=== PATIENT | female | born 1945 | race Caucasian/White ===

== ENCOUNTER → 2023-03-23 07:15 | Outpatient (REF) | payer MEDICARE, OTHER, SELFPAY | LOC: HWRAD 07:15 | PROVIDERS: ATTENDING PHYSICIAN Internal Medicine Critical Care Medicine; FAMILY PHYSICIAN Family Medicine | DX: R91.8 Other nonspecific abnormal finding of lung field (principal) | CPT/HCPCS: 71250 ==

== ENCOUNTER → 2023-03-24 09:48 | Outpatient (REF) | payer MEDICARE, OTHER, SELFPAY ==
[2023-03-24 16:20] LABS: INR 2.07; PT 23.5 Sec (11.4-14.6)
== END ==
LOC: REG 09:48
PROVIDERS: ATTENDING PHYSICIAN Internal Medicine Cardiovascular Disease
DX: I48.91 Unspecified atrial fibrillation (principal)
CPT/HCPCS: 36415; 85610

== ENCOUNTER → 2023-03-30 08:41 | Outpatient (REF) | payer MEDICARE, OTHER, SELFPAY ==
[2023-03-30 11:07] LABS: PT 30.7 Sec (11.4-14.6)
== END ==
LOC: REG 08:41
PROVIDERS: ATTENDING PHYSICIAN Internal Medicine Cardiovascular Disease
DX: I48.91 Unspecified atrial fibrillation (principal)
CPT/HCPCS: 36415; 85610

== ENCOUNTER → 2023-04-07 11:23 | Outpatient (REF) | payer MEDICARE, OTHER, SELFPAY ==
[2023-04-07 17:36] LABS: INR 3.47; PT 35.4 Sec (11.4-14.6)
== END ==
LOC: REG 11:23
PROVIDERS: ATTENDING PHYSICIAN Internal Medicine Cardiovascular Disease
DX: I48.0 Paroxysmal atrial fibrillation (principal)
CPT/HCPCS: 36415; 85610

== ENCOUNTER → 2023-04-13 09:23 | Outpatient (REF) | payer MEDICARE, OTHER, SELFPAY ==
[2023-04-13 11:55] LABS: INR 3.14; PT 32.7 Sec (11.4-14.6)
== END ==
LOC: REG 09:23
PROVIDERS: ATTENDING PHYSICIAN Internal Medicine Cardiovascular Disease
DX: I48.91 Unspecified atrial fibrillation (principal); I48.0 Paroxysmal atrial fibrillation
CPT/HCPCS: 36415; 85610

== ENCOUNTER → 2023-04-20 10:06 | Outpatient (REF) | payer MEDICARE, OTHER, SELFPAY ==
[2023-04-20 11:44] LABS: INR 3.41; PT 34.9 Sec (11.4-14.6)
== END ==
LOC: REG 10:06
PROVIDERS: ATTENDING PHYSICIAN Internal Medicine Cardiovascular Disease
DX: I48.91 Unspecified atrial fibrillation (principal)
CPT/HCPCS: 36415; 85610

== ENCOUNTER → 2023-04-27 09:24 | Outpatient (REF) | payer MEDICARE, OTHER, SELFPAY ==
[2023-04-27 11:56] LABS: INR 3.79
== END ==
LOC: REG 09:24
PROVIDERS: ATTENDING PHYSICIAN Internal Medicine Cardiovascular Disease
DX: I48.0 Paroxysmal atrial fibrillation (principal)
CPT/HCPCS: 36415; 85610

== ENCOUNTER → 2023-04-28 15:17 | Outpatient (REF) | payer MEDICARE, OTHER, SELFPAY | LOC: HWRAD 15:17 | PROVIDERS: ATTENDING PHYSICIAN Family Medicine | DX: Z12.31 Encounter for screening mammogram for malignant neoplasm of breast (principal); Z78.0 Asymptomatic menopausal state | CPT/HCPCS: 77063; 77067; 77080 ==

== ENCOUNTER → 2023-05-04 09:53 | Outpatient (REF) | payer MEDICARE, OTHER, SELFPAY ==
[2023-05-04 11:05] LABS: INR 2.02
== END ==
LOC: REG 09:53
PROVIDERS: ATTENDING PHYSICIAN Internal Medicine Cardiovascular Disease
DX: I48.0 Paroxysmal atrial fibrillation (principal)
CPT/HCPCS: 36415; 85610

== ENCOUNTER → 2023-05-13 08:22 | Outpatient (REF) | payer MEDICARE, OTHER, SELFPAY ==
[2023-05-13 15:00] LABS: INR 1.83
== END ==
LOC: REG 08:22
PROVIDERS: ATTENDING PHYSICIAN Internal Medicine Cardiovascular Disease
DX: I10 Essential (primary) hypertension (principal); I48.0 Paroxysmal atrial fibrillation
CPT/HCPCS: 36415; 85610

== ENCOUNTER → 2023-05-19 08:06 | Outpatient (REF) | payer MEDICARE, OTHER, SELFPAY ==
[2023-05-19 18:03] LABS: INR 1.88; PT 21.8 Sec (11.4-14.6)
== END ==
LOC: REG 08:06
PROVIDERS: ATTENDING PHYSICIAN Internal Medicine Cardiovascular Disease
DX: Z79.01 Long term (current) use of anticoagulants (principal)
CPT/HCPCS: 36415; 85610

== ENCOUNTER → 2023-05-26 10:03 | Outpatient (REF) | payer MEDICARE, OTHER, SELFPAY ==
[2023-05-26 16:25] LABS: % Basophils 0.7 % (0-2); % Eosinophils 0.4 % (0-6); % Immature Granulocytes 0.2 % (0-0.5); % Lymphocytes 25.9 % (20.5-51.1); % Monocytes 11.2 % (1.7-9.3); % Neutrophils 61.6 % (42.2-75.2); Absolute Lymphocytes 1.2 10^3/uL (1.2-3.4); Absolute Monocytes 0.5 10^3/uL (0.1-0.6); Absolute Neutrophils 2.8 10^3/uL (1.4-6.5); Hematocrit 38.3 % (37.0-47.0); Hemoglobin 12.4 g/dL (12.0-16.0); Mean Corp Hgb Conc. 32.4 g/dL (33.0-37.0); Mean Corpuscular Hgb 30.1 pg (27.0-31.0); Mean Platelet Volume 8.9 fL (7.4-10.4); Nucleated Red Blood Cells % 0 %; Platelet Count 184 10^3/uL (130-400); Red Blood Cell Count 4.12 10^6/uL (4.20-5.40); Red Cell Dist. Width 13.5 % (11.5-14.5); White Blood Cell Count 4.5 10^3/uL (4.8-10.8)
[2023-05-26 16:38] LABS: INR 2.13
[2023-05-26 17:14] LABS: ALT (SGPT) 16 U/L (0-35); AST (SGOT) 25 U/L (14-36); Albumin 4.4 g/dl (3.5-5.0); Alkaline Phosphatase 72 U/L (38-126); Blood Urea Nitrogen 19 mg/dl (7-17); Calcium 9.5 mg/dl (8.4-10.2); Carbon Dioxide 26 mmol/L (22-30); Chloride 104 mmol/L (98-107); Glucose 95 mg/dl (70-99); Potassium 4.2 mmol/L (3.5-5.1); Sodium 136 mmol/L (135-145); Total Bilirubin 0.4 mg/dl (0.2-1.3); Total Protein 6.8 g/dl (6.3-8.2); eGFR > 60.00
== END ==
LOC: REG 10:03
PROVIDERS: ATTENDING PHYSICIAN Internal Medicine Cardiovascular Disease; FAMILY PHYSICIAN Family Medicine
DX: I34.0 Nonrheumatic mitral (valve) insufficiency (principal); I10 Essential (primary) hypertension; R79.9 Abnormal finding of blood chemistry, unspecified
CPT/HCPCS: 36415; 80053; 85025; 85610

== ENCOUNTER → 2023-06-02 08:21 | Outpatient (REF) | payer MEDICARE, OTHER, SELFPAY ==
[2023-06-02 12:13] LABS: INR 3.03; PT 31.8 Sec (11.4-14.6)
== END ==
LOC: REG 08:21
PROVIDERS: ATTENDING PHYSICIAN Internal Medicine Cardiovascular Disease
DX: I34.0 Nonrheumatic mitral (valve) insufficiency (principal); I48.0 Paroxysmal atrial fibrillation
CPT/HCPCS: 36415; 85610

== ENCOUNTER 2023-06-06 09:45 | Day surgery (SDC) | payer MEDICARE, OTHER, SELFPAY ==
[2023-06-06] VITALS (10 sets, daily range): BP systolic 114–149; BP diastolic 52–82; BMI 26.5
[2023-06-06 11:07] LABS: INR 2.67; PT 28.4 Sec (11.4-14.6)
[2023-06-06] MEDS: VANCOCIN 200 IV (11:18)
--- NOTE | 2023-06-06 13:58 | PTCARENOTE ---
Pt transported via bed on monitor with 100% NRB mask and 2 RNs to radiology department for CXR.
--- NOTE | 2023-06-06 14:06 | ITS.CL.PACE ---
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
Pacemaker Implant
Procedure Report:
Dual Chamber Pacemaker Placement:
Ms. Khanna is a very pleasant 78 yrs old woman with severe symptomatic bradycardia and difficult to control atrial fibrillation with post conversion pauses and syncpe. She is recommended for PPM placement.�
Indications: Tachy Cirilo syndrome
Date of the Procedure: 06/06/2023
Pre-Operative Diagnosis: Tachy Cirilo syndrome
Post-Operative Diagnosis: Tachy Cirilo syndrome
Procedure Performed: DUAL CHAMBER PACEMAKER IMPLANTATION
Performing Physician:
Janice Baxter MD
Anesthesia:
See anesthesia records
Pre-operative antibiotics:
Aztreonam and Vancomycin
Detailed Description of the Procedure:
The patient was identified using hospital identification and informed consent obtained for the procedure. The risks were explained including, but not limited to: Bleeding, infection, arrhythmia, stroke, vascular/cardiac/lung puncture, surgery,
pacemaker dependency/device malfunction. All questions were answered.
The patient was brought to the electrophysiology laboratory in stable condition in fasting state. Continuous electrocardiographic and hemodynamic monitoring was initiated. The initial rhythm was sinus rhythm.
A surgical pause and time out was performed immediately prior to the procedure with review of her medical history, recent labs, allergies and medications with site of procedure identified and consent noted in the chart. Antibiotics pre operatively
given. All team members concurred.
The procedure site was meticulously prepared with surgical scrub and allowed to dry with no pooling. Sterile draping was applied to cover the procedure site. The image intensifier was draped with sterile bag and positioned over the patient.
A venogram was done that showed occluded venous system with significant collaterals. There was a trickle of flow from the axillary vein to subclavian veins. Decision was made to proceed with axillary stick and try to cannulate the subclavian vein. �
The left infraclavicular region was prepped and draped in the usual sterile fashion. Local anesthesia was administered subcutaneously using 1% lidocaine / Bupivacaine. Following infiltration with local anesthetic, the axillary vein was accessed
using the fluoroscopic guidance using the micro-puncture apparatus. The axillary vein was accessed but the wire would not be advanced. Multiple attempts were done and decision was made to proceed with subclavian vein access beyond the occlusion. The
subclavian vein was accessed and the vascular sheaths were introduced for lead access.
The leads were advanced into the right ventricle and the right atrium. The right ventricular lead was secured in position with an active fixation technique at the apical septal location.
The atrial lead was placed in the RAA with passive fixation tines.
There was excellent sensing, pacing, and impedance from the leads, with no diaphragmatic stimulation at 10 V output.�Bovie cautery, antibiotics, and fluoroscopy were used.
The sheaths were withdrawn, and the thresholds remained acceptable. The leads were secured in position at the venous entry site with 0-silk. A pocket was fashioned contiguous to the incision. The electrode terminals were connected to the pulse
generator, which was placed into the pocket. The wound was irrigated thoroughly with antibiotic solution and closed in 3 layers using 2-0 VLoc then 4-0 Vloc sutures to the dermis. Skin Steristrips were applied externally once the skin was dry.
Then the ILR was extracted. The previous incision was injected with local anesthesia. The fluoroscopy was used to identify the ILR. The capsule was cut and the device was removed. The wound was closed with 4-0 Monocryl suture.
Procedure End:
The procedure was tolerated well.
Estimated Blood loss:
5 cc
Specimens Removed:
No cultures and no specimens were obtained. No intraoperative pathology was identified.
Urine output:
None
Packs / Drains/ Tubes:
None
Instrument / Sponge Count Correct:
Yes
Complications of the Procedure:
None
Condition of Patient at Time of Transfer:
Hemodynamically stable with no neurological or vascular compromise.
Device information:�
Generator: [employer]; Model: W1DR01; Serial # [id number]�
Atrial Lead: [employer]; Model: 4574-53; Serial # [id number]�
Measured data in the right atrium was sensing of 0.8 mV of AF waves, impedance of 680 ohms and threshold of 1.0 V at 0.4ms�
The atrial flutter was attempted for pace termination and changed into atrial fibrillation.
RV Lead: Med[employer]onic; Model: 5076-58; Serial # [id number]
Measured data in the RV lead was sensing of 10mV, impedance of 980 ohms and threshold of 1.0 V at 0.4ms�
Explanted ILR:
LNQ 22 � Serial # [id number] � Implanted 12/06/22, explanted 06/06/23
Cirilo parameter settings were AAIR <=>DDDR 60-130 bpm. �
����������� Mode Switch: On
����������� Paced AV interval: 180ms
����������� Sensed AV interval: 150 ms.
����������� Rate Adaptive A-V Interval: Off
Output� parameters:
����������������������� Amplitude (V)������������� Pulse Width (ms)������� Sensitivity (mV)
����������� RA: ����� 3.5 ����������������� ����������� 0.4������������������ ����������� 0.3
����������� RV:������ 3.5������������������ ����������� 0.4������������������ ����������� 0.9
Summary:
Successful implantation of MRI compatible dual chamber Medtronic pacemaker
Results/Recommendations:
-Please follow up CXR�
1. Please provide patient with adequate pain control�
Instructions to be given to patient:�
- Please follow up with [facility] at [address] [place] [address] ([phone]) to get your wound checked within 14 days of your discharge.
- Do not wet incision site until after it is evaluated at cardiology clinic. No showers until then. Sponge baths are OK.�
- No swimming until cleared by the cardiology clinic.
- Do not lift left elbow above shoulder, particularly with sudden jerking movements, for 1 month�
- Do not lift anything weighing more than 10 pounds with the left arm for 1 month�
- If you notice any fevers, shortness of breath, lightheadedness, chest pain, or worsening swelling in the wound site, please contact the arrhythmia clinic, contact your airplane patroller, or present to the hospital for evaluation.�
Janice Baxter MD
Electrophysiology
[2023-06-06] MEDS: ULTRAM 50 MG PO (14:27)
--- NOTE | 2023-06-06 15:20 | PTCARENOTE ---
Dr Baxter at pt bedside speaking to pt and pt's family.
[2023-06-06] MEDS: DILAUDID 0.5 MG IV (16:13)
[2023-06-06] MEDS: FLUSH (NSS) 1 FLUSH IV (16:14)
--- NOTE | 2023-06-06 16:16 | PTCARENOTE ---
patient c/o LCW 8 out of 10 pain, dilaudid IV given as ordered.
[2023-06-06] MEDS: DILAUDID 0.25 MG IV (20:48)
[2023-06-06] MEDS: COZAAR 50 MG PO (20:54)
[2023-06-06] MEDS: COLACE 100 MG PO (20:54)
--- NOTE | 2023-06-06 21:25 | PTCARENOTE ---
Assumed care. Patient complaints of 8 out 10 left chest/shoulder pain. Dilaudid IV given with releif. Left pressure dressing CDI, immobilizer intact
[2023-06-06] MEDS: PEPCID 40 MG PO (22:36)
[2023-06-06] MEDS: COREG 25 MG PO (22:36)
[2023-06-07 02:51] VITALS: BP 129/57
--- NOTE | 2023-06-07 03:21 | PTCARENOTE ---
Patient returning from the bathroom. Offered pain medications, pain is tolerable refused any intervention. Labs collected, EKG performed, lights dimmed,call díaz in reach
[2023-06-07 03:23] LABS: Hematocrit 33.6 % (37.0-47.0); Hemoglobin 11.7 g/dL (12.0-16.0); Mean Corp Hgb Conc. 34.8 g/dL (33.0-37.0); Mean Corpuscular Hgb 30.7 pg (27.0-31.0); Mean Corpuscular Volume 88.2 fL (81.0-99.0); Mean Platelet Volume 8.5 fL (7.4-10.4); Platelet Count 165 10^3/uL (130-400); Red Blood Cell Count 3.81 10^6/uL (4.20-5.40); Red Cell Dist. Width 13.7 % (11.5-14.5); White Blood Cell Count 6.9 10^3/uL (4.8-10.8)
[2023-06-07 03:34] LABS: INR 2.12; PT 23.6 Sec (11.4-14.6)
[2023-06-07 03:47] LABS: Blood Urea Nitrogen 17 mg/dl (7-17); Calcium 8.9 mg/dl (8.4-10.2); Carbon Dioxide 23 mmol/L (22-30); Chloride 106 mmol/L (98-107); Estimated Creatinine Clearance 70 ml/min; Glucose 154 mg/dl (70-99); Potassium 4.5 mmol/L (3.5-5.1); Sodium 134 mmol/L (135-145); eGFR > 60.00
[2023-06-07] MEDS: DILAUDID 0.25 MG IV (08:20)
[2023-06-07] MEDS: CYMBALTA DELAYED RELEASE 30 MG PO (08:29)
[2023-06-07] MEDS: COLACE 100 MG PO (08:30)
[2023-06-07] MEDS: COZAAR 50 MG PO (08:30)
--- NOTE | 2023-06-07 10:55 | W.DS.TRANS ---
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
-
Discharge Instructions:
Discharge Diagnosis/Procedures Linq device removal with Pacemaker implant
Diet Low Cholesterol
Driving Restrictions No driving for 1 week
Bathing Restrictions OK to Shower
Blood Work CHECK INR IN 1 WEEK
Instructions:
Stand-Alone Forms: DC Inst - Implanted Device
Changes to Home Medications: No
Discharge Medications:
DC Medications w/original date entered in [employer]
carvedilol 25 mg tablet 25 mg PO HS Heart Failure 04/19/22
hydralazine 10 mg tablet 10 mg PO Q8HPRN PRN SBP>175 04/19/22
ipratropium bromide 42 mcg (0.06 %) nasal spray 2 spray intranasal BID Allergies 04/19/22
cyanocobalamin (vitamin B-12) 1,000 mcg tablet (Vitamin B-12) 1,000 mcg PO DAILY Supplement 11/17/22
duloxetine 30 mg capsule,delayed release (Cymbalta) 30 mg PO DAILY Depression 11/17/22
famotidine 40 mg tablet 40 mg PO HS Gastrointestinal Issue 11/17/22
epinephrine 0.3 mg/0.3 mL injection, auto-injector 0.3 mg IM Q15M PRN ANAPHYLATIC REACTION 12/10/22
tramadol 100 mg tablet,extended release 24 hr 100 mg PO HS Pain 12/10/22
docusate sodium 100 mg capsule 100 mg PO BID #30 caps 01/07/23
acetaminophen 650 mg tablet,extended release 1,300 mg PO DAILY 06/06/23
lansoprazole 15 mg capsule,delayed release 15 mg PO DAILY 06/06/23
lidocaine 5 % topical patch 1 patch topical [id number] PRN pain 06/06/23
losartan 50 mg tablet 50 mg PO BID 06/06/23
warfarin 2.5 mg tablet 2.5 mg PO WE 06/06/23
warfarin 5 mg tablet 5 mg PO SUMOTUTHFRSA 06/06/23
hydromorphone 2 mg tablet (Dilaudid) 2 mg PO Q6H PRN SEVERE PAIN #1 tab 06/07/23
Home Medication Changes
Pending Results: No
--- NOTE | 2023-06-07 12:50 | CM ---
Chart reviewed. Patient is independent of ADLS, lives with her in a 1 STH, 1 SONIA, 0 DME. Plan is for the patient to return home no needs.
== END 2023-06-07 11:30 | disposition home or self-care (01) ==
LOC: CATH 09:45
PROVIDERS: Nurse Practitioner; ATTENDING PHYSICIAN Internal Medicine Cardiovascular Disease; FAMILY PHYSICIAN Family Medicine; OTHER PHYSICIAN Internal Medicine Cardiovascular Disease
DX: I49.5 Sick sinus syndrome (principal); I48.92 Unspecified atrial flutter; I49.3 Ventricular premature depolarization; R55 Syncope and collapse; I10 Essential (primary) hypertension; Z09 Encounter for follow-up examination after completed treatment for conditions other than malignant neoplasm; I48.0 Paroxysmal atrial fibrillation; E78.5 Hyperlipidemia, unspecified; M06.9 Rheumatoid arthritis, unspecified; G47.33 Obstructive sleep apnea (adult) (pediatric); Z87.440 Personal history of urinary (tract) infections; Z86.19 Personal history of other infectious and parasitic diseases; Z82.49 Family history of ischemic heart disease and other diseases of the circulatory system; Z88.1 Allergy status to other antibiotic agents; Z88.0 Allergy status to penicillin; Z88.2 Allergy status to sulfonamides; Z88.5 Allergy status to narcotic agent; Z91.030 Bee allergy status; Z91.040 Latex allergy status; Z79.01 Long term (current) use of anticoagulants
CPT/HCPCS: 33208; 33286; 71045; 80048; 85027; 85610; 93005; C1785; C1892; C1898; Q9967

== ENCOUNTER → 2023-06-13 10:21 | Outpatient (REF) | payer MEDICARE, OTHER, SELFPAY ==
[2023-06-13 13:28] LABS: INR 1.42; PT 17.2 Sec (11.4-14.6)
== END ==
LOC: REG 10:21
PROVIDERS: ATTENDING PHYSICIAN Internal Medicine Cardiovascular Disease
DX: I34.0 Nonrheumatic mitral (valve) insufficiency (principal); I48.0 Paroxysmal atrial fibrillation
CPT/HCPCS: 36415; 85610

== ENCOUNTER → 2023-06-20 12:48 | Outpatient (REF) | payer MEDICARE, OTHER, SELFPAY ==
[2023-06-20 15:50] LABS: INR 2.52
== END ==
LOC: REG 12:48
PROVIDERS: ATTENDING PHYSICIAN Internal Medicine Cardiovascular Disease
DX: I48.91 Unspecified atrial fibrillation (principal)
CPT/HCPCS: 36415; 85610

== ENCOUNTER 2023-06-21 16:34 | Emergency (ER) | payer MEDICARE, OTHER, SELFPAY ==
[2023-06-21 16:35] VITALS: BP 155/79
[2023-06-21 16:51] VITALS: BMI 26.2
--- NOTE | 2023-06-21 18:36 | EDRN ---
Yudelka Boudreaux INSIDE PLANT SUPERVISOR currently at the pts bedside speaking with the pt
--- NOTE | 2023-06-21 20:02 | ED.SKININJ ---
HPI-Injury
General
Chief Complaint: Head Injury
Source: patient
Exam Limitations: none
Time Seen by Provider: 06/21/23 16:48
Nursing documentation reviewed up to this point in time: agreed with
Travel History
Have you had any contact with someone who has COVID-19?: No
Do you have any symptoms of coronavirus? Fever > 100 degrees, chills, cough, shortness of breath, sore throat, loss of taste or smell, muscle aches, or headache?: No
History of Present Illness-Injury
Is this injury a work related problem?: No
Is pt an associate of [facility]?: No
Initial Injury comments:
Patient states her sneaker stuck on floor and she fell forward. Hit face on floor. No LOC. SUstained a deep abrasion to nose. Complains of pain to left dorsal hand. Injury occurred just [employer]
Past History
Past History
ED Past Medical History: Arrthythmia (afib), Asthma, GERD and HTN
ED Past Surgical History: Orthopedic
Review of Systems
Review of Systems
Allergies reviewed?: Yes
All Other Systems: ROS reviewed and negative except as documented in HPI and ROS
Constitutional: Reports no symptoms
EENT: Reports no symptoms
Respiratory: Reports no symptoms
Cardiac: Reports no symptoms
ABD/GI: Reports no symptoms
Musculoskeletal: Reports joint pain (pain to left hand)
Skin: Reports other (deep abrasion to nose)
Neurological: Reports no symptoms
Psychiatric: Reports no symptoms
Skin Exam
Abrasion
Nose:
Description of abrasion: deep/clean ( 1cm horizontal deep abrasion, closed with Dermabond )
Phy Exam
General Physical Exam
General Presentation: well appearing and no apparent distress
General age: appears stated age
General Skin: warm and dry
General Habitus: normal
General Mental: alert
Neurological Exam
Neurological Exam: alert, oriented x3, CN II-XII intact, no motor deficits, no sensory deficits, speech normal and normal gait
[place] Coma Scale
Eye Opening: Spontaneous
Verbal Response: Oriented
Motor Response: Obeys Commands
GCS Total Score: 15
Musculoskeletal Exam
Musculoskeletal Exam: neuro vasc intact
Skin Exam
Skin Exam: normal color, warm/dry and no rash
Psychiatric Exam
Psychiatric Exam: normal mood/affect
Course
Orders/Labs/Results
Orders:
Orders
06/21/23 16:50
CT Head W/o Iv Contrast Urgent
Comment:
Reason For Exam: fall with head strike on Coumadin
06/21/23 16:53
CR Hand - Left Min 3 Views Urgent
Comment:
Reason For Exam: swelling
06/21/23 16:57
CT Cervical Spine W/o Iv Contr Urgent
Comment:
Reason For Exam: post head strike on coumadin
06/21/23 17:39
Nasal Bones, complete 3 Views [CR Nasal Bones Comp Min 3 View] Urgent
Comment:
Reason For Exam: post fall
Vital Signs
Initial and Last Documented VS:
Initial Vital Signs
Temp Pulse Resp BP Pulse Ox
97.6 F 73 18 155/79 98
06/21/23 16:35 06/21/23 16:35 06/21/23 16:35 06/21/23 16:35 06/21/23 16:35
Last Documented Vital Signs
Temp Pulse Resp BP Pulse Ox
97.6 F 73 18 155/79 98
06/21/23 16:35 06/21/23 16:35 06/21/23 16:35 06/21/23 16:35 06/21/23 16:35
*Radiology
Radiology exam reviewed: radiology read reviewed
*Pulse Oximetry
Patient hypoxic: no
*Critical Care Note
Total Time (30-74mins, 75-104mins- exclusive of procedures): Not Applicable
ED Attending Note
-
Portions of this chart may have been created with voice recognition software.� Occasional wrong word or��sound alike� substitutions may have occurred due to the inherent limitations of voice recognition software.
Discharge Plan
Departure
Patient Disposition: Home (Routine Discharge)
Date of Disposition: 06/21/23
Time of Disposition: 18:48
Patient with high blood pressure during this ER visit?: No
Condition: Good
Covid-19: Not Applicable
Discharge Problem:
Head injury, Contusion of nose, Contusion of hand
Instructions: Concussion, Adult (DC), Laceration Repair With Glue (DC), Head Injury in Adults (DC)
Prescriptions:
No Action
hydralazine 10 mg Tablet
10 mg PO Q8HPRN PRN (Reason: SBP>175)
carvedilol 25 mg Tablet
25 mg PO BID
ipratropium bromide 42 mcg (0.06 %) [place],Non-Aerosol
2 spray INTRANASAL BID
epinephrine 0.3 mg/0.3 mL Auto-Injector
0.3 mg IM Q15M PRN (Reason: ANAPHYLATIC REACTION)
tramadol 100 mg Tablet Extended Release 24 Hr
100 mg PO HS
docusate sodium 100 mg Capsule
100 mg PO BID Qty: 30 0RF
famotidine 40 mg Tablet
40 mg PO HS
cyanocobalamin (vitamin B-12) [Vitamin B-12] 1,000 mcg Tablet
1,000 mcg PO DAILY
duloxetine [Cymbalta] 30 mg Capsule,Delayed Release(Dr/Ec)
60 mg PO DAILY
losartan 50 mg Tablet
50 mg PO BID
warfarin 2.5 mg Tablet
2.5 mg PO WE
warfarin 5 mg Tablet
5 mg PO SUMOTUTHFRSA
lansoprazole 15 mg Capsule,Delayed Release(Dr/Ec)
15 mg PO DAILY
lidocaine 5 % Adhesive Patch,Medicated
1 patch TOPICAL [id number] PRN (Reason: pain)
acetaminophen 650 mg tablet extended release
1,300 mg PO DAILY
Rx Instructions:
Do NOT exceed >4000 mg daily.
Referrals:
UNKNOWN - PT DOES,NOT KNOW [Family Provider] -
Activity Restrictions/Additional Instructions:
Follow up with your family doctor this week.
Interventions
Interventions:
*Risk Screen - Suicide Last Done: 06/21/23 16:51
*General Assessment Last Done: 06/21/23 16:51
*Neglect/Abuse Screening Last Done: 06/21/23 16:51
ED- Fall Risk Assessment Last Done: 06/21/23 18:55
*ED COVID-19 Vaccine History Last Done: 06/21/23 16:51
*Nursing Disposition Last Done: 06/21/23 18:55
ED- Neurological Assessment Last Done: 06/21/23 16:51
ED-Skin Assessment Last Done: 06/21/23 16:51
Discharge Date and Time
Discharge Date/Time: 06/21/23 18:56
Print Language: SAMI
Musculoskeletal Injury Exam
Musculoskeletal Injury Exam
Left Hand:
Pain with Movement?: Moderate
Tender to palpation?: Moderate
Soft tissue swelling?: Moderate
External deformity and angulation?: None
Joint effusion?: None
Contusion?: Moderate
Hematoma-local bleeding into tissue?: Moderate
Strain- Sprain- Tear (Connective tissue injury)?: Moderate
Crepitus with movement?: No
Joint instability?: No
Malalignment/deformity?: No
Range of motion: Limited
Distal skin color and temperature: normal-warm & good color
Capillary Refill: normal
Normal distal neurovascular exam?: Yes
Peripheral Pulses: radial (left): 3+
== END 2023-06-21 18:56 | disposition home or self-care (01) ==
LOC: EMR 16:34
PROVIDERS: EMERGENCY PHYSICIAN Emergency Medicine
DX: S09.90XA Unspecified injury of head, initial encounter (principal); S00.31XA Abrasion of nose, initial encounter; S00.33XA Contusion of nose, initial encounter; W19.XXXA Unspecified fall, initial encounter; I48.91 Unspecified atrial fibrillation; J45.909 Unspecified asthma, uncomplicated; K21.9 Gastro-esophageal reflux disease without esophagitis; I10 Essential (primary) hypertension; Z79.01 Long term (current) use of anticoagulants
CPT/HCPCS: 99284; 70160; 70450; 72125; 73130

== ENCOUNTER → 2023-08-04 15:38 | Outpatient (REF) | payer MEDICARE, OTHER, SELFPAY | LOC: RAD 15:38 | PROVIDERS: ATTENDING PHYSICIAN Nurse Practitioner; FAMILY PHYSICIAN Family Medicine | DX: Z95.0 Presence of cardiac pacemaker (principal) | CPT/HCPCS: 71046 ==

== ENCOUNTER → 2023-09-12 12:46 | Outpatient (REF) | payer MEDICARE, OTHER, SELFPAY | LOC: SDSPAT 12:46 | PROVIDERS: ATTENDING PHYSICIAN Internal Medicine Cardiovascular Disease; FAMILY PHYSICIAN Family Medicine; OTHER PHYSICIAN Internal Medicine Cardiovascular Disease | DX: Z01.818 Encounter for other preprocedural examination (principal); I48.0 Paroxysmal atrial fibrillation | CPT/HCPCS: 36415; 86850; 86900; 86901; 93005 ==

== ENCOUNTER → 2023-09-13 08:53 | Outpatient (REF) | payer MEDICARE, OTHER, SELFPAY ==
[2023-09-13 10:12] LABS: % Basophils 0.8 % (0-2); % Immature Granulocytes 0.5 % (0-0.5); % Neutrophils 63.7 % (42.2-75.2); Absolute Lymphocytes 0.9 10^3/uL (1.2-3.4); Absolute Monocytes 0.4 10^3/uL (0.1-0.6); Absolute Neutrophils 2.5 10^3/uL (1.4-6.5); Hematocrit 36.5 % (37.0-47.0); Hemoglobin 12.2 g/dL (12.0-16.0); Mean Corp Hgb Conc. 33.4 g/dL (33.0-37.0); Mean Corpuscular Volume 92.9 fL (81.0-99.0); Mean Platelet Volume 8.9 fL (7.4-10.4); Nucleated Red Blood Cells % 0 %; Platelet Count 152 10^3/uL (130-400); Red Blood Cell Count 3.93 10^6/uL (4.20-5.40); Red Cell Dist. Width 13.3 % (11.5-14.5); White Blood Cell Count 3.9 10^3/uL (4.8-10.8)
[2023-09-13 10:44] LABS: ALT (SGPT) 17 U/L (0-35); AST (SGOT) 27 U/L (14-36); Albumin 4.2 g/dl (3.5-5.0); Alkaline Phosphatase 70 U/L (38-126); Blood Urea Nitrogen 17 mg/dl (7-17); Calcium 9.2 mg/dl (8.4-10.2); Carbon Dioxide 28 mmol/L (22-30); Chloride 104 mmol/L (98-107); Glucose 100 mg/dl (70-99); Potassium 4.7 mmol/L (3.5-5.1); Sodium 137 mmol/L (135-145); Total Bilirubin 0.5 mg/dl (0.2-1.3); Total Protein 6.5 g/dl (6.3-8.2); eGFR > 60.00
== END ==
LOC: REG 08:53
PROVIDERS: ATTENDING PHYSICIAN Family Medicine
DX: I48.0 Paroxysmal atrial fibrillation (principal); F32.0 Major depressive disorder, single episode, mild; F41.1 Generalized anxiety disorder; I10 Essential (primary) hypertension; M54.12 Radiculopathy, cervical region
CPT/HCPCS: 36415; 80053; 85025

== ENCOUNTER 2023-09-22 06:04 | Day surgery (SDC) | payer MEDICARE, OTHER, SELFPAY ==
[2023-09-12 12:55] VITALS: BMI 27.1
[2023-09-22] VITALS (9 sets, daily range): BP systolic 106–158; BP diastolic 51–82
[2023-09-22 07:02] LABS: INR 1.32; PT 16.4 Sec (11.4-14.6)
[2023-09-22 07:03] LABS: APTT 31.2 Sec (23.4-35.0)
[2023-09-22] MEDS: TRANSDERM-SCOP 1 PATCH TRANSDERM (07:34)
[2023-09-22] MEDS: ANESTHETIC LOZENGE 1 LOZENGE PO (10:21)
--- NOTE | 2023-09-22 12:08 | ITS.CL.ABL ---
Cafe Worker - Ablation
Ablation
Procedure Report:
AFIB ablation:
Mr. Khanna is a very pleasant 78 yr old woman with symptomatic paroxysmal AF presented today to the EP lab for atrial fibrillation ablation.
Date of the Procedure:
09/22/2023
Indications:
Paroxysmal atrial fibrillation
Pre-Operative Diagnosis:
Paroxysmal atrial fibrillation
Post-Operative Diagnosis:
Paroxysmal atrial fibrillation
Procedure Performed:
Atrial fibrillation ablation with Pulsed-Field approach for pulmonary vein isolation
Performing Physician:
Janice Baxter MD
Assistants:
EP staff
Anesthesia:
See anesthesia records
Detailed Description of the Procedure:
Written informed consent was obtained from the patient after a full explanation of the risks and benefits of the procedure including the risks of sedation and anesthesia.
The patient was brought to the electrophysiology laboratory in stable condition in fasting state. Continuous electrocardiographic and hemodynamic monitoring was initiated.
The initial rhythm was normal sinus rhythm.
The pacemaker is working normally with no change in setting needed during the case.
The procedure site was meticulously prepared with surgical scrub and allowed to dry with no pooling. Sterile draping was applied to cover the procedure site. The image intensifier was draped with sterile bag and positioned over the patient. After
infusion of local anesthetic, vascular access was obtained under ultrasound guidance and sheaths were placed over guide wire as detailed below.
Sheath and Catheter Placement:
In the right femoral vein, an 8-[place]izen [place] sheath was placed under ultrasound guidance for use during the ablation procedure and a mapping catheter was intermittently placed in the high right atrium, right ventricle, left atrium. In the right femoral
vein, another 9-Fr sheath was placed for use during intra-cardiac echo procedure. Another 7Fr sheath was placed in the left femoral vein for CS catheter placement.
The sheaths were upgraded as needed during the case. Intra-cardiac catheters were positioned using direct fluoroscopic guidance. Decapolar catheter advanced into CS position. ICE catheter was placed in RA. The following catheters / sheaths were
placed
Sheaths:
��������� 15Fr steerable sheath (FlexCath Cross�, [employer]) in right femoral vein in right femoral vein
��������� 9Fr in right femoral vein
��������� 7Fr in right femoral vein
Catheters:
��������� NYLA HD Grid mapping catheter � at locations of RA, LA
��������� PulseSelect� PFA catheter
��������� ICE catheter -AcuNav - at locations of RA, SVC, and RV.
��������� Decapolar Bard catheter in RA and CS
Intracardiac ECHO:
An 8-Citizen [place] AcuNav intracardiac ECHO (ICE) probe was advanced through the 9-Citizen [place] sheath in the right femoral vein into the right atrium under fluoroscopic and ICE ultrasound image guidance and a baseline ECHO study was performed. The left atrial
size was mildly dilated. There was moderate tricuspid regurgitation. The aortic valve was grossly normal. There was normal left ventricular systolic functions. There is trace pericardial effusion. All the four veins were identified and has flow
identified.
During the procedure, ICE was used for monitoring of complications, guidance of trans-septal puncture, monitor the catheter position and tracking ablation lesions. No change in the pericardial space noted throughout the procedure.
Trans-septal Puncture:
Heparin was initiated and infused to maintain appropriate ACT. A J-tipped guidewire was advanced through the 8-Citizen [place] sheath in the right femoral vein into the superior vena cava under fluoroscopic and ICE guidance. The 8-[place]izen [place] sheath was exchanged
for a FlexCath Cross sheath which was advanced into the superior vena cava. An AcWhoJam transseptal access system was utilized to perform the trans-septal puncture. The apparatus was withdrawn until it was in contact with the fossa ovalis. The
position was adjusted based on fluoroscopy and ultrasound images from ICE. Under fluoroscopic, hemodynamic and ICE ultrasound guidance, left atrium was cannulated by advancing the needle. Once atrial septum was cannulated, the needle was pulled back
and a guide wire was advanced through the needle into the left atrium. The guide wire was advanced into the left superior pulmonary vein. Both the sheath and the dilator was advanced into the left atrium. The dilator with the needle was withdrawn.
Blood was aspirated from the FlexCath cross sheath and arterial blood confirmed. The sheath was flushed. Saline injection noted into the left atrium on ICE. The mapping catheter was advanced in the Agilis sheath into the left pulmonary vein. Left
atrial pressure was measured.
3D Electroanatomic Mapping:
Using the HD Grid catheter advanced through sheath into the left atrium, an electroanatomic map (EAM) of the left atrium was created using [employer] NYLA mapping system. The map was used for localization of catheter position and tacking of ablation
lesions. The EAM of the left atrium showed 4 pulmonary veins with two left sided and two right sided veins electrically connected to the body the LA. The EAM showed no significant scar in the left atrium.
The LA was normal in size.
Following the EAM, preparation were made for ablation.
Ablation:
Ablation # 1: Pulmonary vein Isolation:
Using [employer]� pulsed field ablation system, pulmonary vein isolation was acieved. First the ablation catheter was placed in the LSPV and ostial ablation lesions were performed in a counter clock approach all around the PV ostium
circumferentially. Then the catheter was placed on the antral location and multiple ablation lesions were placed circumferentially on the antrum of the vein.
In the similar fashion, the LIPV were isolated.
Then the catheter was moved to right sided veins. The phrenic nerve was paced before and after the ablation on the right sided vein young the anterior ablations.
The ostial and antral ablations were placed as noted above.
Post ablation Electroanatomic mapping:
Once the sinus rhythm achieved, the LA was mapped with HD grid in detail.
The veins were isolated and normal electrograms noted in the posterior wall. Excellent WACA ablation noted with excellent demarcation of LA myocardium and isolated antral tissue.
EPS and Confirmation of the PVI and bidirectional block:
Following achievement of entrance block at the pulmonary veins, pacing from the HD catheter in each of the four veins at 10 milliamps for 2 milliseconds showed entrance and exit block. All PVI were rechecked at the end of the case and remained
isolated with dissociated and local capture with pacing. Entrance and exit block were demonstrated in all veins.
Procedure End
ICE study was done again that showed no epicardial accumulation. No complications noted.
Following the completion of the EP study, catheters were removed. Protamine 30 mg was given at the end of the procedure and ACT was checked repeatedly. The sheaths were removed and hemostasis achieved with manual compression after acceptable ACT is
achieved.
Left atrial Pressure:
Pre- Mean LA pressure was 12mmHg
Post- Mean LA pressure was 14mmHg
Post- Mean RA pressure was 11mmHg
Estimated Blood loss:
<10 cc
Specimens Removed:
None.
Implants / Devices:
None
Urine output:
None
Packs / Drains/ Tubes:
None
Instrument / Sponge Count Correct:
Yes
Complications of the Procedure:
None
Condition of Patient at Time of Transfer:
Hemodynamically stable with no neurological or vascular compromise.
Summary:
Successful atrial fibrillation ablation with Pulsed Field approach for pulmonary vein isolation
Figures from the Procedure:
Figure 1: The electroanatomic mapping (EAM) of the left atrium with bipolar voltage (purple indicates normal electrical activity with mathews as no myocardial muscle electric activity indicating a line of block or scar.
--- NOTE | 2023-09-22 14:00 | W.PN.UPDATE ---
Update Note
Progress Note Update
78 yo WF s/p PVI (same day) She feels good, slight heaviness in chest with deep inspiration, no sob, krista diet, EKG SR, R fem site c/d/i, VASCADE closure. She will resume OAC Coumadin tonight with INR check Tuesday, usual dosing. Activity
restrictions reviewed. She will f/u HYGIENE ASSISTANT in 2 weeks. SHe is for d/c home after 1230p ..
Mr. Khanna is a very pleasant 78 yr old woman with symptomatic paroxysmal AF presented today to the EP lab for atrial fibrillation ablation.
09/22/2023
Procedure Performed:
Atrial fibrillation ablation with Pulsed-Field approach for pulmonary vein isolation
[2023-09-22 15:09] LABS: ACT-LR - POC > 397 Seconds (116-155)
[2023-09-22 15:09] LABS: ACT-LR - POC > 397 Seconds (116-155)
[2023-09-22 15:09] LABS: ACT-LR - POC > 397 Seconds (116-155)
== END 2023-09-22 12:50 | disposition home or self-care (01) ==
LOC: CATH 06:04
PROVIDERS: ATTENDING PHYSICIAN Internal Medicine Cardiovascular Disease; FAMILY PHYSICIAN Family Medicine; OTHER PHYSICIAN Internal Medicine Cardiovascular Disease
DX: I48.0 Paroxysmal atrial fibrillation (principal); I49.5 Sick sinus syndrome; I10 Essential (primary) hypertension; J42 Unspecified chronic bronchitis; G47.33 Obstructive sleep apnea (adult) (pediatric); E55.9 Vitamin D deficiency, unspecified; E78.5 Hyperlipidemia, unspecified; F32.A Depression, unspecified; I73.9 Peripheral vascular disease, unspecified; K21.9 Gastro-esophageal reflux disease without esophagitis; M06.9 Rheumatoid arthritis, unspecified; M45.9 Ankylosing spondylitis of unspecified sites in spine; Z88.0 Allergy status to penicillin; Z95.0 Presence of cardiac pacemaker; R06.02 Shortness of breath; R53.83 Other fatigue; G43.909 Migraine, unspecified, not intractable, without status migrainosus; G47.00 Insomnia, unspecified; G90.50 Complex regional pain syndrome I, unspecified; Z79.01 Long term (current) use of anticoagulants; Z90.710 Acquired absence of both cervix and uterus; Z98.890 Other specified postprocedural states; Z79.899 Other long term (current) drug therapy; Z88.1 Allergy status to other antibiotic agents; Z91.030 Bee allergy status; Z88.8 Allergy status to other drugs, medicaments and biological substances; Z91.040 Latex allergy status; Z88.2 Allergy status to sulfonamides; Z88.5 Allergy status to narcotic agent; M54.10 Radiculopathy, site unspecified; Z87.891 Personal history of nicotine dependence; I49.3 Ventricular premature depolarization
CPT/HCPCS: C1732; C1730; C1733; C1769; C1894; C1892; C1766; C1759; 76937; 85347; 85610; 85730; 86900; 86901; 93005; 93656; C1760

== ENCOUNTER → 2023-12-06 08:28 | Outpatient (REF) | payer MEDICARE, OTHER, SELFPAY ==
[2023-12-06 09:53] LABS: % Basophils 0.7 % (0-2); % Eosinophils 1.2 % (0-6); % Lymphocytes 19.6 % (20.5-51.1); % Monocytes 9.7 % (1.7-9.3); % Neutrophils 67.8 % (42.2-75.2); Absolute Eosinophils 0.1 10^3/uL (0-0.7); Absolute Immature Granulocytes 0.1 10^3/uL (0-0.05); Absolute Lymphocytes 1.1 10^3/uL (1.2-3.4); Absolute Monocytes 0.6 10^3/uL (0.1-0.6); Absolute Neutrophils 3.9 10^3/uL (1.4-6.5); Hematocrit 37.3 % (37.0-47.0); Hemoglobin 12.2 g/dL (12.0-16.0); Mean Corp Hgb Conc. 32.7 g/dL (33.0-37.0); Mean Corpuscular Hgb 29.7 pg (27.0-31.0); Mean Corpuscular Volume 90.8 fL (81.0-99.0); Mean Platelet Volume 9.1 fL (7.4-10.4); Nucleated Red Blood Cells % 0 %; Platelet Count 220 10^3/uL (130-400); Red Blood Cell Count 4.11 10^6/uL (4.20-5.40); Red Cell Dist. Width 13.3 % (11.5-14.5); White Blood Cell Count 5.8 10^3/uL (4.8-10.8)
[2023-12-06 10:46] LABS: ALT (SGPT) 16 U/L (0-35); AST (SGOT) 22 U/L (14-36); Albumin 4.3 g/dl (3.5-5.0); Alkaline Phosphatase 74 U/L (38-126); Blood Urea Nitrogen 24 mg/dl (7-17); Calcium 9.4 mg/dl (8.4-10.2); Carbon Dioxide 28 mmol/L (22-30); Chloride 100 mmol/L (98-107); Glucose 99 mg/dl (70-99); HDL Cholesterol 73 mg/dl; LDL Cholesterol, Calculated 109 mg/dl; Potassium 5.1 mmol/L (3.5-5.1); Sodium 138 mmol/L (135-145); Total Bilirubin 0.3 mg/dl (0.2-1.3); Total Cholesterol 248 mg/dl (50-199); Total Protein 6.5 g/dl (6.3-8.2); Triglyceride 331 mg/dl (10-149); Very Low Density Lipoprotein 66 mg/dl (0-30); eGFR > 60.00
[2023-12-06 10:56] LABS: Glycohemoglobin (HgbA1c) 5.5 % (4.0-5.6)
== END ==
LOC: REG 08:28
PROVIDERS: ATTENDING PHYSICIAN Family Medicine
DX: R79.9 Abnormal finding of blood chemistry, unspecified (principal); I48.0 Paroxysmal atrial fibrillation; I49.5 Sick sinus syndrome; Z95.0 Presence of cardiac pacemaker; I10 Essential (primary) hypertension; E78.5 Hyperlipidemia, unspecified
CPT/HCPCS: 36415; 80053; 80061; 83036; 85025

== ENCOUNTER → 2024-03-22 07:48 | Outpatient (REF) | payer MEDICARE, OTHER, SELFPAY ==
[2024-03-22 08:53] LABS: % Basophils 0.7 % (0-2); % Eosinophils 1.2 % (0-6); % Lymphocytes 24.8 % (20.5-51.1); % Monocytes 11.1 % (1.7-9.3); % Neutrophils 61.2 % (42.2-75.2); Absolute Eosinophils 0.1 10^3/uL (0-0.7); Absolute Monocytes 0.5 10^3/uL (0.1-0.6); Absolute Neutrophils 2.5 10^3/uL (1.4-6.5); Hematocrit 37.7 % (37.0-47.0); Hemoglobin 12.1 g/dL (12.0-16.0); Mean Corp Hgb Conc. 32.1 g/dL (33.0-37.0); Mean Corpuscular Hgb 29.9 pg (27.0-31.0); Mean Corpuscular Volume 93.1 fL (81.0-99.0); Nucleated Red Blood Cells % 0 %; Platelet Count 191 10^3/uL (130-400); Red Blood Cell Count 4.05 10^6/uL (4.20-5.40); Red Cell Dist. Width 13.8 % (11.5-14.5); White Blood Cell Count 4.2 10^3/uL (4.8-10.8)
[2024-03-22 11:30] LABS: ALT (SGPT) 20 U/L (0-35); AST (SGOT) 26 U/L (14-36); Albumin 4.4 g/dl (3.5-5.0); Alkaline Phosphatase 65 U/L (38-126); Blood Urea Nitrogen 18 mg/dl (7-17); Calcium 8.5 mg/dl (8.4-10.2); Carbon Dioxide 31 mmol/L (22-30); Chloride 98 mmol/L (98-107); Glucose 90 mg/dl (70-99); HDL Cholesterol 103 mg/dl; LDL Cholesterol, Calculated 141 mg/dl; Potassium 4.7 mmol/L (3.5-5.1); Sodium 137 mmol/L (135-145); Total Bilirubin 0.6 mg/dl (0.2-1.3); Total Cholesterol 271 mg/dl (50-199); Total Protein 6.5 g/dl (6.3-8.2); Triglyceride 135 mg/dl (10-149); Very Low Density Lipoprotein 27 mg/dl (0-30); eGFR > 60.00
[2024-03-22 11:55] LABS: TSH Reflex To Free T4 2.35 uIU/ml (0.47-4.68)
== END ==
LOC: REG 07:48
PROVIDERS: ATTENDING PHYSICIAN Family Medicine
DX: I48.0 Paroxysmal atrial fibrillation (principal); I49.5 Sick sinus syndrome; F32.0 Major depressive disorder, single episode, mild; F41.1 Generalized anxiety disorder; I10 Essential (primary) hypertension; E78.5 Hyperlipidemia, unspecified
CPT/HCPCS: 36415; 80053; 80061; 84443; 85025

== ENCOUNTER → 2024-04-02 12:08 | Outpatient (REF) | payer MEDICARE, OTHER, SELFPAY | LOC: HWRAD 12:08 | PROVIDERS: ATTENDING PHYSICIAN Internal Medicine Critical Care Medicine; FAMILY PHYSICIAN Family Medicine | DX: R91.8 Other nonspecific abnormal finding of lung field (principal) | CPT/HCPCS: 71250 ==

== ENCOUNTER → 2024-05-14 13:32 | Outpatient (REF) | payer MEDICARE, OTHER, SELFPAY | LOC: MRI 13:32 | PROVIDERS: ATTENDING PHYSICIAN Student in an Organized Health Care Education/Training Program; FAMILY PHYSICIAN Family Medicine | DX: M79.671 Pain in right foot (principal) | CPT/HCPCS: 73721; 76014; 76015 ==

== ENCOUNTER → 2024-05-14 15:12 | Outpatient (REF) | payer MEDICARE, OTHER, SELFPAY ==
[2024-05-14 15:51] LABS: % Basophils 0.8 % (0-2); % Eosinophils 0.8 % (0-6); % Immature Granulocytes 0.4 % (0-0.5); % Lymphocytes 24.2 % (20.5-51.1); % Monocytes 9.6 % (1.7-9.3); % Neutrophils 64.2 % (42.2-75.2); Absolute Lymphocytes 1.1 10^3/uL (1.2-3.4); Absolute Monocytes 0.5 10^3/uL (0.1-0.6); Hematocrit 35.9 % (37.0-47.0); Hemoglobin 11.9 g/dL (12.0-16.0); Mean Corp Hgb Conc. 33.1 g/dL (33.0-37.0); Mean Corpuscular Hgb 30.4 pg (27.0-31.0); Mean Corpuscular Volume 91.8 fL (81.0-99.0); Mean Platelet Volume 8.9 fL (7.4-10.4); Nucleated Red Blood Cells % 0 %; Platelet Count 180 10^3/uL (130-400); Red Blood Cell Count 3.91 10^6/uL (4.20-5.40); Red Cell Dist. Width 14.6 % (11.5-14.5); White Blood Cell Count 4.7 10^3/uL (4.8-10.8)
[2024-05-14 15:58] LABS: Erythrocyte Sed Rate 8 mm/hour (0-20)
[2024-05-14 16:16] LABS: ALT (SGPT) 18 U/L (0-35); AST (SGOT) 23 U/L (14-36); Albumin 4.5 g/dl (3.5-5.0); Alkaline Phosphatase 77 U/L (38-126); Blood Urea Nitrogen 20 mg/dl (7-17); Calcium 9.3 mg/dl (8.4-10.2); Carbon Dioxide 26 mmol/L (22-30); Chloride 108 mmol/L (98-107); Glucose 96 mg/dl (70-99); Potassium 4.2 mmol/L (3.5-5.1); Sodium 143 mmol/L (135-145); Total Bilirubin 0.4 mg/dl (0.2-1.3); Total Protein 6.7 g/dl (6.3-8.2); eGFR > 60.00
[2024-05-14 18:34] LABS: Hepatitis B Core Ab, Total Negative (Negative); Hepatitis C Antibody Negative (Negative)
[2024-05-14 19:19] LABS: Hepatitis B Surface Antigen Negative (Negative)
[2024-05-15 12:33] LABS: Rheumatoid Agglutinin Less Than 10 IU (<10 IU)
[2024-05-17 02:32] LABS: CCP Antibody IgG/IgA 3 Units (0-19)
== END ==
LOC: RAD 15:12
PROVIDERS: ATTENDING PHYSICIAN Physician Assistant; FAMILY PHYSICIAN Family Medicine; REFERRING PHYSICIAN Student in an Organized Health Care Education/Training Program
DX: M19.049 Primary osteoarthritis, unspecified hand (principal); M45.9 Ankylosing spondylitis of unspecified sites in spine; M54.59 Other low back pain; M79.645 Pain in left finger(s); K75.9 Inflammatory liver disease, unspecified; M06.4 Inflammatory polyarthropathy; M25.50 Pain in unspecified joint; M79.644 Pain in right finger(s); M81.0 Age-related osteoporosis without current pathological fracture; Z22.7 Latent tuberculosis
CPT/HCPCS: 36415; 72202; 73130; 80053; 85025; 85652; 86140; 86200; 86430; 86704; 86803; 87340

== ENCOUNTER → 2024-06-05 08:28 | Outpatient (REF) | payer MEDICARE, OTHER, SELFPAY ==
[2024-06-07 06:55] LABS: Quantiferon Mitogen minus NIL 9.45 IU/mL; Quantiferon NIL 0.05 IU/mL; Quantiferon Plus TB1 minus NIL 0.04 IU/mL (<=0.34); Quantiferon Plus TB2 minus NIL 0.04 IU/mL (<=0.34); Quantiferon TB Gold Plus Negative (Negative)
== END ==
LOC: REG 08:28
PROVIDERS: ATTENDING PHYSICIAN Physician Assistant; FAMILY PHYSICIAN Family Medicine
DX: Z22.7 Latent tuberculosis (principal); K75.9 Inflammatory liver disease, unspecified
CPT/HCPCS: 36415; 86480

== ENCOUNTER → 2024-09-06 15:31 | Outpatient (REF) | payer MEDICARE, OTHER, SELFPAY | LOC: HWWDC 15:31 | PROVIDERS: ATTENDING PHYSICIAN Family Medicine | DX: Z12.31 Encounter for screening mammogram for malignant neoplasm of breast (principal) | CPT/HCPCS: 77063; 77067 ==

== ENCOUNTER → 2024-09-18 08:35 | Outpatient (REF) | payer MEDICARE, OTHER, SELFPAY ==
[2024-09-18 09:44] LABS: Hematocrit 36.5 % (37.0-47.0); Hemoglobin 12.2 g/dL (12.0-16.0); Mean Corp Hgb Conc. 33.4 g/dL (33.0-37.0); Mean Corpuscular Volume 95.3 fL (81.0-99.0); Nucleated Red Blood Cells % 0 %; Platelet Count 195 10^3/uL (130-400); Red Cell Dist. Width 13.9 % (11.5-14.5)
[2024-09-18 10:08] LABS: ALT (SGPT) 17 U/L (0-35); AST (SGOT) 25 U/L (14-36); Albumin 4.5 g/dl (3.5-5.0); Alkaline Phosphatase 57 U/L (38-126); Blood Urea Nitrogen 18 mg/dl (7-17); Calcium 9.4 mg/dl (8.4-10.2); Carbon Dioxide 30 mmol/L (22-30); Chloride 101 mmol/L (98-107); Glucose 105 mg/dl (70-99); HDL Cholesterol 108 mg/dl; LDL Cholesterol, Calculated 148 mg/dl; Potassium 5.0 mmol/L (3.5-5.1); Sodium 136 mmol/L (135-145); Total Protein 6.9 g/dl (6.3-8.2); Very Low Density Lipoprotein 19 mg/dl (0-30); eGFR > 60.00
[2024-09-18 10:12] LABS: C-Reactive Protein < 5.00 mg/L (0.0-10.00)
== END ==
LOC: REG 08:35
PROVIDERS: ATTENDING PHYSICIAN Student in an Organized Health Care Education/Training Program; OTHER PHYSICIAN Family Medicine
DX: M19.049 Primary osteoarthritis, unspecified hand (principal); M25.50 Pain in unspecified joint; M45.9 Ankylosing spondylitis of unspecified sites in spine; M53.3 Sacrococcygeal disorders, not elsewhere classified; M54.59 Other low back pain; M79.644 Pain in right finger(s); M79.645 Pain in left finger(s); M81.0 Age-related osteoporosis without current pathological fracture; I48.0 Paroxysmal atrial fibrillation; I49.5 Sick sinus syndrome; I10 Essential (primary) hypertension; E78.5 Hyperlipidemia, unspecified
CPT/HCPCS: 36415; 80053; 80061; 82330; 85025; 85652; 86140

== ENCOUNTER → 2024-12-03 09:37 | Outpatient (REF) | payer MEDICARE, OTHER, SELFPAY ==
[2024-12-03 11:52] LABS: Hematocrit 36.3 % (37.0-47.0); Hemoglobin 11.7 g/dL (12.0-16.0); Mean Corp Hgb Conc. 32.2 g/dL (33.0-37.0); Mean Corpuscular Volume 94.5 fL (81.0-99.0); Platelet Count 212 10^3/uL (130-400); Red Cell Dist. Width 13.3 % (11.5-14.5)
[2024-12-03 12:41] LABS: Blood Urea Nitrogen 19 mg/dl (7-17); Calcium 9.2 mg/dl (8.4-10.2); Carbon Dioxide 29 mmol/L (22-30); Chloride 104 mmol/L (98-107); Glucose 93 mg/dl (70-99); Potassium 4.8 mmol/L (3.5-5.1); Sodium 139 mmol/L (135-145); eGFR > 60.00
== END ==
LOC: SDSPAT 09:37
PROVIDERS: ATTENDING PHYSICIAN Orthopaedic Surgery; FAMILY PHYSICIAN Family Medicine
DX: Z01.818 Encounter for other preprocedural examination (principal)
CPT/HCPCS: 36415; 80048; 85027

== ENCOUNTER 2024-12-06 06:24 | Day surgery (SDC) | payer MEDICARE, OTHER, SELFPAY ==
[2024-12-03 13:50] VITALS: BMI 26.4
[2024-12-06 09:10] VITALS: BP 149/75
[2024-12-06 09:37] VITALS: BMI 26.4
[2024-12-06] MEDS: TRANSDERM-SCOP 1 PATCH TRANSDERM (09:51)
[2024-12-06] MEDS: NORMOSOL-R/PLASMALYTE-A 1000 IV (10:00)
[2024-12-06 12:00] VITALS: BP 125/51; BP 149/75
[2024-12-06 12:15] VITALS: BP 115/54
[2024-12-06 12:49] VITALS: BP 116/88
[2024-12-06 13:20] VITALS: BP 137/66
[2024-12-06 13:46] VITALS: BP 123/63
== END 2024-12-06 14:28 | disposition home or self-care (01) ==
LOC: SDS 06:24
PROVIDERS: ATTENDING PHYSICIAN Orthopaedic Surgery; FAMILY PHYSICIAN Family Medicine
DX: M75.121 Complete rotator cuff tear or rupture of right shoulder, not specified as traumatic (principal); M19.011 Primary osteoarthritis, right shoulder
CPT/HCPCS: 29827; 29826; C1713

== ENCOUNTER → 2025-01-22 11:23 | Outpatient (REF) | payer MEDICARE, OTHER, SELFPAY ==
[2025-01-22 12:23] LABS: Hematocrit 37.7 % (37.0-47.0); Hemoglobin 12.0 g/dL (12.0-16.0); Mean Corp Hgb Conc. 31.8 g/dL (33.0-37.0); Mean Corpuscular Volume 97.9 fL (81.0-99.0); Nucleated Red Blood Cells % 0 %; Platelet Count 218 10^3/uL (130-400); Red Cell Dist. Width 13.1 % (11.5-14.5)
[2025-01-22 12:49] LABS: ALT (SGPT) 17 U/L (0-35); AST (SGOT) 21 U/L (14-36); Albumin 4.6 g/dl (3.5-5.0); Alkaline Phosphatase 84 U/L (38-126); Blood Urea Nitrogen 12 mg/dl (7-17); Calcium 9.2 mg/dl (8.4-10.2); Carbon Dioxide 29 mmol/L (22-30); Chloride 101 mmol/L (98-107); Glucose 97 mg/dl (70-99); HDL Cholesterol 84 mg/dl; LDL Cholesterol, Calculated 127 mg/dl; Potassium 4.2 mmol/L (3.5-5.1); Sodium 137 mmol/L (135-145); Total Protein 7.2 g/dl (6.3-8.2); Very Low Density Lipoprotein 34 mg/dl (0-30); eGFR > 60.00
== END ==
LOC: REG 11:23
PROVIDERS: ATTENDING PHYSICIAN Nurse Practitioner; FAMILY PHYSICIAN Family Medicine
DX: I10 Essential (primary) hypertension (principal); I48.0 Paroxysmal atrial fibrillation; F41.1 Generalized anxiety disorder; G90.50 Complex regional pain syndrome I, unspecified; G47.33 Obstructive sleep apnea (adult) (pediatric); Z95.0 Presence of cardiac pacemaker; K21.9 Gastro-esophageal reflux disease without esophagitis; F32.0 Major depressive disorder, single episode, mild; E78.00 Pure hypercholesterolemia, unspecified
CPT/HCPCS: 36415; 80053; 80061; 84443; 85025